=== PATIENT | female | born 1935 | race African-American/Black ===

== ENCOUNTER → 2017-02-11 | Outpatient (CLI) | payer BC ==
[2013-10-10 00:57] VITALS: BP 134/62
[~2017-02-11] MED LIST: AMLO10TA2 PO; ASPI-482 PO; CALC-274 PO; CARV6.252 PO; CLON0.5T3 PO; CLOT15CR5 TP; ESCITALOPRAM OX10 MG PO; HYDR28.3 TP; LATA2.5D3 OP; MELA1TAB13 PO; MIRT15TA3 PO; MULT1TAB13 PO; OLME40TA12 PO; OMEP40CA5 PO; ONDA4TAB7 PO; PRAV20TA PO; SUCR1TAB PO
--- NOTE | 2017-02-11 13:15 | RAD ---
DATE: 02/11/2017 EXAM: DIGITAL SCREEN BILAT W/CAD HISTORY: Screening mammogram. COMPARISON: Previous mammograms from 2015, 2014 and 2013 This study was interpreted with the benefit of Computerized Aided Detection (CAD). FINDINGS: Breast Density: SCATTERED The breast parenchyma shows scattered fibroglandular densities. Breast parenchyma level B. The skin and nipples are within normal limits. Stable small nodular densities are seen in the right breast dating back to 2013. No suspicious calcifications, spiculated masses or areas of architectural distortion. IMPRESSION: No mammographic evidence of malignancy. Stable mammogram. BI-RADS CATEGORY: 2 BENIGN FINDING(S) RECOMMENDED FOLLOW-UP: 12M 12 MONTH FOLLOW-UP PQRS compliance statement: Patient information was entered into a reminder system with a target due date 02/11/2018 for the next mammogram. Mammography is a sensitive method for finding small breast cancers, but it does not detect them all and is not a substitute for careful clinical examination. A negative mammogram does not negate a clinically suspicious finding and should not result in delay in biopsying a clinically suspicious abnormality. "Our facility is accredited by the [employer] Mammography [employer]."
== END | disposition home or self-care (01) ==
LOC: MAMMO 12:44
PROVIDERS: ATTEND Family Medicine
DX: Z12.31 Encounter for screening mammogram for malignant neoplasm of breast (principal)
CPT/HCPCS: G0202; 77067

== ENCOUNTER → 2017-04-06 | Outpatient (CLI) | payer BC ==
[2017-04-06] MEDS: ZOLPIDEM 5 MG TABLET. PO (22:30)
== END | disposition home or self-care (01) ==
LOC: SLPLAB 18:25
DX: G47.33 Obstructive sleep apnea (adult) (pediatric) (principal)
CPT/HCPCS: 95810

== ENCOUNTER 2017-04-08 10:12 | Emergency (ER) | payer BC ==
[2017-04-08] MEDS: IV NORMAL SALINE 1000ML BAG 1,000 ML IV (11:11)
[2017-04-08] MEDS: ONDANSETRON PF 4 MG/2 ML VIAL. IV (11:12)
[2017-04-08] MEDS: FAMOTIDINE 20 MG/2 ML VIAL IVP (11:12)
[2017-04-08 11:19] LABS: ADD MAN DIFF? NO
[2017-04-08 11:20] LABS: BASO % 0 % (0-3); EOS # 0.1 x10^3/uL (0.0-0.7); EOS % 1 % (0-3); HEMATOCRIT 42.4 % (36.0-47.0); HEMOGLOBIN 14.1 g/dL (12.0-15.5); LYMPH # 1.3 x10^3/uL (1.0-4.8); LYMPH % 26 % (24-48); MEAN CORPUSCULAR HEMOGLOBIN 30 pg (25-35); MEAN CORPUSCULAR HGB CONC 33 g/dL (31-37); MEAN CORPUSCULAR VOLUME 89 fL (79-100); MONO # 0.9 x10^3/uL (0.0-1.1); MONO % 18 % (0-9); NEUT # 2.8 x10^3uL (1.8-7.7); NEUT % 54 % (31-73); PLATELET COUNT 153 x10^3/uL (140-400); RED BLOOD COUNT 4.75 x10^6/uL (3.50-5.40); RED CELL DISTRIBUTION WIDTH 14.3 % (11.5-14.5); WHITE BLOOD COUNT 5.1 x10^3/uL (4.0-11.0)
[2017-04-08 11:32] LABS: INR 1.1 (0.8-1.1); PARTIAL THROMBOPLASTIN TIME 25 SEC (24-38); PROTHROMBIN TIME PATIENT 13.1 SEC (11.7-14.0)
[2017-04-08 11:33] LABS: ANION GAP 8 (6-14); BLOOD UREA NITROGEN 10 mg/dL (7-20); BUN/CREATININE RATIO 10 (6-20); CALCIUM 8.5 mg/dL (8.5-10.1); CARBON DIOXIDE 31 mmol/L (21-32); CHLORIDE 103 mmol/L (98-107); GFR 64.2; GLUCOSE 127 mg/dL (70-99); POTASSIUM 3.7 mmol/L (3.5-5.1); SODIUM 142 mmol/L (136-145)
[2017-04-08 11:35] LABS: INFLUENZA A PATIENT NEGATIVE (NEGATIVE); INFLUENZA B PATIENT NEGATIVE (NEGATIVE); OBC FLU VALID
[2017-04-08 11:39] LABS: ALBUMIN 3.5 g/dL (3.4-5.0); ALBUMIN/GLOBULIN RATIO 1.1 (1.0-1.7); ALK PHOS 89 U/L (46-116); ALT (SGPT) 47 U/L (14-59); AST (SGOT) 33 U/L (15-37); LIPASE 120 U/L (73-393); TOTAL BILIRUBIN 0.4 mg/dL (0.2-1.0); TOTAL PROTEIN 6.6 g/dL (6.4-8.2)
[2017-04-08 11:42] LABS: TROPONINI < 0.017 ng/mL (0.000-0.055)
[2017-04-08 12:01] LABS: BILIRUBIN,URINE NEGATIVE (NEG); CLARITY,URINE CLEAR; COLOR,URINE YELLOW; GLUCOSE,URINE NEGATIVE (NEG); NITRITE,URINE NEGATIVE (NEG); PROTEIN,URINE NEGATIVE (NEG-TRACE); UROBILINOGEN,URINE 0.2 mg/dL (0.2 mg/dL)
[2017-04-08 12:04] LABS: BACTERIA,URINE FEW /HPF (0-FEW); RBC,URINE 0 /HPF (0-2); SQUAMOUS EPITHELIAL CELL,UR FEW /LPF; WBC,URINE OCC /HPF (0-4)
== END 2017-04-08 13:26 | disposition home or self-care (01) ==
LOC: ER 13:26
DX: R11.2 Nausea with vomiting, unspecified (principal); R53.1 Weakness; R19.7 Diarrhea, unspecified; E11.9 Type 2 diabetes mellitus without complications; K21.9 Gastro-esophageal reflux disease without esophagitis; I10 Essential (primary) hypertension; Z95.0 Presence of cardiac pacemaker; Z90.49 Acquired absence of other specified parts of digestive tract
CPT/HCPCS: 36415; 71045; 80053; 81001; 83690; 84484; 85025; 85610; 85730; 87804; 87804-59; 93005; 96361; 96374; 96375; 99285-25; J2405; J7030; S0028

== ENCOUNTER → 2017-06-08 | Outpatient (CLI) | payer BC ==
[2017-06-08] MEDS: ZOLPIDEM 5 MG TABLET. PO (21:00)
== END | disposition home or self-care (01) ==
LOC: RT 18:34
DX: G47.33 Obstructive sleep apnea (adult) (pediatric) (principal)
CPT/HCPCS: 95811

== ENCOUNTER → 2018-02-14 | Outpatient (CLI) | payer BC ==
[2017-04-08 13:14] VITALS: BP 145/67
[~2018-02-14] MED LIST changes: -AMLO10TA2 PO; +AMLO10TA6 PO; +CARV6.2511 PO; -CARV6.252 PO; +CLON0.5T11 PO; -CLON0.5T3 PO; +DIPH1TAB PO; +ONDA4TAB10 SL
--- NOTE | 2018-02-14 09:46 | RAD ---
DATE: 02/14/2018 EXAM: MAMMO ANNIA SCREENING BILATERAL HISTORY: Routine screening COMPARISON: 03/13/2017 This study was interpreted with the benefit of Computerized Aided Detection (CAD). Breast Density: SCATTERED The breast parenchyma shows scattered fibroglandular densities. Breast parenchyma level B. FINDINGS: 2-D and 3-D tomosynthesis imaging was performed in CC and MLO projections. No new or enlarging breast densities are seen. Benign type calcifications are present. No suspicious microcalcifications have developed. IMPRESSION: Stable mammograms without evidence of malignancy. BI-RADS CATEGORY: 2 BENIGN FINDING(S) RECOMMENDED FOLLOW-UP: 12M 12 MONTH FOLLOW-UP PQRS compliance statement: Patient information was entered into a reminder system with a target due date for the next mammogram. Mammography is a sensitive method for finding small breast cancers, but it does not detect them all and is not a substitute for careful clinical examination. A negative mammogram does not negate a clinically suspicious finding and should not result in delay in biopsying a clinically suspicious abnormality. "Our facility is accredited by the [employer] Mammography [employer]."
== END | disposition home or self-care (01) ==
LOC: MAMMO 07:21
PROVIDERS: ATTEND Family Medicine
DX: Z12.31 Encounter for screening mammogram for malignant neoplasm of breast (principal)
CPT/HCPCS: 77063; 77067

== ENCOUNTER → 2019-02-15 | Outpatient (CLI) | payer BC ==
[2017-04-08 13:14] VITALS: BP 145/67
[~2019-02-15] MED LIST changes: -AMLO10TA6 PO; +AMLO10TA8 PO; +CLON-77 PO; -CLON0.5T11 PO; +OMEP40CA45 PO; -OMEP40CA5 PO
--- NOTE | 2019-02-15 14:07 | RAD ---
DATE: February 15, 2019 EXAM: MAMMO ANNIA SCREENING BILATERAL HISTORY: Screening study. COMPARISON: 2016 and 2018. This study was interpreted with the benefit of Computerized Aided Detection (CAD). 2-D digital mammographic views of both breasts were performed in the CC and MLO projections. 3-D digital tomosynthesis images of both breasts were performed in the CC and MLO projections and reviewed on a computer workstation. FINDINGS: Breast Density: SCATTERED The breast parenchyma shows scattered fibroglandular densities. Breast parenchyma level B.. There are no dominant suspicious masses, suspicious microcalcifications or evidence of architectural distortion. IMPRESSION: No mammographic indicators for malignancy. BI-RADS CATEGORY: 1 NEGATIVE RECOMMENDED FOLLOW-UP: 12M 12 MONTH FOLLOW-UP PQRS compliance statement: Patient information was entered into a reminder system with a target due date February 17, 2020 for the next mammogram. Mammography is a sensitive method for finding small breast cancers, but it does not detect them all and is not a substitute for careful clinical examination. A negative mammogram does not negate a clinically suspicious finding and should not result in delay in biopsying a clinically suspicious abnormality. "Our facility is accredited by the [employer] Mammography [employer]." The patient's breast density may affect the ability of mammography to detect breast cancer. There are 4 categories of breast density, A, B, C and D. Breast density A means that most of the breast tissue is replaced with adipose tissue and therefore is not dense. Breast density B means that the breast tissue is mildly dense and scattered. Breast density C means that the breast tissue is heterogeneously dense. Breast density D means that the breast tissue is very dense. Breast densities especially C and D may decrease the sensitivity of mammography to detect breast cancer. Therefore, the patient may benefit from 3-D breast mammography (3D breast tomography) as a part of their screening mammogram. Insurance may or may not pay for this additional imaging. The patient's breast density based on today's mammogram is category B.
== END | disposition home or self-care (01) ==
LOC: MAMMO 12:34
PROVIDERS: ATTEND Family Medicine
DX: Z12.31 Encounter for screening mammogram for malignant neoplasm of breast (principal)
CPT/HCPCS: 77063; 77067

== ENCOUNTER 2019-04-22 12:14 | Emergency (ER) | payer BC ==
[~2019-04-22] VITALS: Ht 162.6 cm; Wt 92.0 kg
[2019-04-22 13:17] LABS: INFLUENZA A PATIENT NEGATIVE (NEGATIVE); INFLUENZA B PATIENT NEGATIVE (NEGATIVE)
[2019-04-22 13:37] LABS: BASO # 0.1 x10^3/uL (0.0-0.2); BASO % 0 % (0-3); EOS % 0 % (0-3); HEMATOCRIT 42.1 % (36.0-47.0); HEMOGLOBIN 13.8 g/dL (12.0-15.5); LYMPH # 1.5 x10^3/uL (1.0-4.8); LYMPH % 11 % (24-48); MEAN CORPUSCULAR HEMOGLOBIN 30 pg (25-35); MEAN CORPUSCULAR HGB CONC 33 g/dL (31-37); MEAN CORPUSCULAR VOLUME 91 fL (79-100); MONO # 1.5 x10^3/uL (0.0-1.1); MONO % 11 % (0-9); NEUT # 10.8 x10^3/uL (1.8-7.7); NEUT % 78 % (31-73); PLATELET COUNT 133 x10^3/uL (140-400); RED CELL DISTRIBUTION WIDTH 14.1 % (11.5-14.5); WHITE BLOOD COUNT 13.8 x10^3/uL (4.0-11.0)
[2019-04-22 13:38] LABS: CALCIUM 8.9 mg/dL (8.5-10.1); GFR 63.9; POTASSIUM 4.7 mmol/L (3.5-5.1)
[2019-04-22 13:44] LABS: ALBUMIN 3.5 g/dL (3.4-5.0); TOTAL BILIRUBIN 0.5 mg/dL (0.2-1.0); TOTAL PROTEIN 6.9 g/dL (6.4-8.2)
[2019-04-22] MEDS ORDERED: IBUPROFEN 400 MG TABLET. PO ONE (13:45)
--- NOTE | 2019-04-22 13:51 | RAD ---
EXAM: CHEST AP ONLY INDICATION: Cough. TECHNIQUE: Single view COMPARISON: Chest x-ray of 04/08/2017 FINDINGS: A left chest dual-chamber pacemaker is present. The heart size is normal. The great vessels appear unremarkable. There is no hilar or mediastinal mass. The lungs show ill-defined opacity approximately 3 cm in the left hemithorax. This is not evident on the previous examination although a monitor lead was overlying the area on the previous exam.. There is no pleural effusion or pneumothorax. There are no significant osseous abnormalities. IMPRESSION: Ill-defined nodular opacity in the left midlung is newly apparent. Otherwise no acute findings in the chest status post previous left chest dual-chamber pacemaker placement. In the setting of cough, this could represent pneumonia. Recommend follow-up to resolution. Electronically signed by: Aramis French MD (04/22/2019 1:49 PM) [facility]
[2019-04-22] MEDS ORDERED: IV NORMAL SALINE 1000ML BAG 1,000 ML IV ONE (14:00)
[2019-04-22] MEDS ORDERED: cefTRIAXone IV Push 1 GM VIAL. IVP ONE (14:00)
[2019-04-22] MEDS ORDERED: AZITHROMYCIN 250 MG TABLET. PO ONE (14:00)
[2019-04-22] MEDS ORDERED: CEFD300C PO (14:16)
[2019-04-22] MEDS ORDERED: AZIT250T PO (14:16)
--- NOTE | 2019-04-22 14:18 | PHYS DOC ---
Past Medical History Past Medical History: Anxiety, Depression, Diabetes-Type II, GERD, Hypertension Additional Past Medical Histor: sleep apnea, CKD, neuropathy Past Surgical History: Cholecystectomy, Pacemaker Smoking Status: Former Smoker Alcohol Use: None Drug Use: None Adult General Chief Complaint Chief Complaint: Congestion HPI HPI Patient is a 83 year old female who presented to ER today for evaluation of fever , chill, productive cough with yellow sputum for a couple days. Patient also complaint of nasal congestion, headache, no neck pain. Patient denies any chest pain, no trouble breathing. No abdominal pain, no nausea or vomiting. No recent sick contact or hospitalization. All other ROS is negative unless otherwise noted in HPI Review of Systems Review of Systems See above Current Medications Current Medications Current Medications Medications (Trade) Dose Ordered Sig/Simi Start Time Stop Time Status Last Admin Dose Admin Azithromycin (Zithromax) 500 mg 1X ONCE 04/22/19 14:00 04/22/19 14:01 DC 04/22/19 14:02 500 MG Ceftriaxone Sodium (Rocephin) 1 gm 1X ONCE 04/22/19 14:00 04/22/19 14:01 DC 04/22/19 14:03 1 GM Ibuprofen (Motrin) 800 mg 1X ONCE 04/22/19 13:45 04/22/19 13:55 DC 04/22/19 14:03 800 MG Sodium Chloride 1,000 ml @ 1,000 mls/hr 1X ONCE 04/22/19 14:00 04/22/19 14:59 04/22/19 14:02 1,000 MLS/HR Allergies Allergies Allergies Coded Allergies Type Severity Reaction Last Updated Verified acetaminophen Allergy Intermediate 04/22/19 Yes ibuprofen Adverse Reaction Intermediate Nausea 04/22/19 Yes Physical Exam Physical Exam See above Constitutional: Well developed, well nourished, no acute distress, non-toxic appearance. [] HENT: Normocephalic, atraumatic, bilateral external ears normal, oropharynx moist with erythema, no oral exudates, nose with clear discharge Eyes: PERRLA, EOMI, conjunctiva normal, no discharge. [] Neck: Normal range of motion, no tenderness, supple, no stridor. [] Cardiovascular:Heart rate regular rhythm, no murmur [] Lungs & Thorax: Bilateral breath sounds clear to auscultation [] Abdomen: Bowel sounds normal, soft, no tenderness, no masses, no pulsatile masses. [] Skin: Warm, dry, no erythema, no rash. [] Back: No tenderness, no CVA tenderness. [] Extremities: No tenderness, no cyanosis, no clubbing, ROM intact, no edema. [] Neurologic: Alert and oriented X 3, normal motor function, normal sensory function, no focal deficits noted. [] Psychologic: Affect normal, judgement normal, mood normal. [] Current Patient Data Vital Signs Vital Signs Date Time Temp Pulse Resp B/P (MAP) Pulse Ox O2 Delivery O2 Flow Rate FiO2 04/22/19 13:23 60 16 155/68 (97) 98 Room Air 04/22/19 12:20 100.0 100.0 Lab Values Laboratory Tests Test 04/22/19 12:00 04/22/19 13:10 Influenza Type A Antigen Negative (NEGATIVE) Influenza Type B Antigen Negative (NEGATIVE) White Blood Count 13.8 x10^3/uL (4.0-11.0) H Red Blood Count 4.60 x10^6/uL (3.50-5.40) Hemoglobin 13.8 g/dL (12.0-15.5) Hematocrit 42.1 % (36.0-47.0) Mean Corpuscular Volume 91 fL (79-100) Mean Corpuscular Hemoglobin 30 pg (25-35) Mean Corpuscular Hemoglobin Concent 33 g/dL (31-37) Red Cell Distribution Width 14.1 % (11.5-14.5) Platelet Count 133 x10^3/uL (140-400) L Neutrophils (%) (Auto) 78 % (31-73) H Lymphocytes (%) (Auto) 11 % (24-48) L Monocytes (%) (Auto) 11 % (0-9) H Eosinophils (%) (Auto) 0 % (0-3) Basophils (%) (Auto) 0 % (0-3) Neutrophils # (Auto) 10.8 x10^3/uL (1.8-7.7) H Lymphocytes # (Auto) 1.5 x10^3/uL (1.0-4.8) Monocytes # (Auto) 1.5 x10^3/uL (0.0-1.1) H Eosinophils # (Auto) 0.0 x10^3/uL (0.0-0.7) Basophils # (Auto) 0.1 x10^3/uL (0.0-0.2) Sodium Level 136 mmol/L (136-145) Potassium Level 4.7 mmol/L (3.5-5.1) Chloride Level 98 mmol/L (98-107) Carbon Dioxide Level 30 mmol/L (21-32) Anion Gap 8 (6-14) Blood Urea Nitrogen 13 mg/dL (7-20) Creatinine 1.0 mg/dL (0.6-1.0) Estimated GFR (Cockcroft-Gault) 63.9 BUN/Creatinine Ratio 13 (6-20) Glucose Level 264 mg/dL (70-99) H Lactic Acid Level 2.0 mmol/L (0.4-2.0) Calcium Level 8.9 mg/dL (8.5-10.1) Total Bilirubin 0.5 mg/dL (0.2-1.0) Aspartate Amino Transferase (AST) 25 U/L (15-37) Alanine Aminotransferase (ALT) 25 U/L (14-59) Alkaline Phosphatase 108 U/L (46-116) Troponin I Quantitative < 0.017 ng/mL (0.000-0.055) Total Protein 6.9 g/dL (6.4-8.2) Albumin 3.5 g/dL (3.4-5.0) Albumin/Globulin Ratio 1.0 (1.0-1.7) Laboratory Tests 04/22/19 13:10 Laboratory Tests 04/22/19 13:10 EKG EKG EKG was done at 1242, rate of 60 beats per minutes, paced rhythm. Radiology/Procedures Radiology/Procedures [][facility] [address] [place] [address] IMAGING REPORT Signed PATIENT: ARMAND MANUEL ACCOUNT: [id number] : 1935 LOCATION: ER AGE: 83 SEX: F EXAM STATUS: REG ER ORD. PHYSICIAN: ALICIA KAISER DO REASON: cough, PROCEDURE: CHEST AP ONLY EXAM: CHEST AP ONLY INDICATION: Cough. TECHNIQUE: Single view COMPARISON: Chest x-ray of 04/08/2017 FINDINGS: A left chest dual-chamber pacemaker is present. The heart size is normal. The great vessels appear unremarkable. There is no hilar or mediastinal mass. The lungs show ill-defined opacity approximately 3 cm in the left hemithorax. This is not evident on the previous examination although a monitor lead was overlying the area on the previous exam.. There is no pleural effusion or pneumothorax. There are no significant osseous abnormalities. IMPRESSION: Ill-defined nodular opacity in the left midlung is newly apparent. Otherwise no acute findings in the chest status post previous left chest dual-chamber pacemaker placement. In the setting of cough, this could represent pneumonia. Recommend follow-up to resolution. Electronically signed by: Kt French MD (04/22/2019 1:49 PM) [facility] DICTATED and SIGNED BY: KT FRENCH MD DATE: 04/22/19 1344 Course & Med Decision Making Course & Med Decision Making Pertinent Labs and Imaging studies reviewed. (See chart for details) She is an 83-year-old female who was pneumonia in the ER, she was given IV Rocephin and Zithromax by mouth in the ER, patient did not want to stay hospital. Patient wants to go home and try outpatient treatment first. She says she will come back if she does not get better on Wednesday. Dragon Disclaimer Dragon Disclaimer This electronic medical record was generated, in whole or in part, using a voice recognition dictation system. Departure Departure Impression: Primary Impression: Community acquired pneumonia Disposition: HOME, SELF-CARE Condition: STABLE Referrals: CONCHIS BOYLE MD (PCP) PLEASE FOLLOW UP WITH YOUR DOCTOR ON WEDNESDAY FOR REEVALUATION. Patient Instructions: Pneumonia, Adult Additional Instructions: Thank you for visiting our Emergency Department. We appreciate you trusting us with your care. If any additional problems come up don't hesitate to return to visit us. Please follow up with your primary care provider so they can plan additional care if needed and know about the problem that you had. If symptoms worsen come back to the Emergency Department. Any concerning symptoms that start such as chest pain, shortness of air, weakness or numbness on one side of the body, running high fevers or any other concerning symptoms return to the ER. Scripts Azithromycin (ZITHROMAX) 250 Mg Tablet 250 MG PO DAILY for ANTI-BIOTIC for 4 Days, #4 TAB 0 Refills Prov: ALICIA KAISER DO 04/22/19 Cefdinir (CEFDINIR) 300 Mg Capsule 1 CAP PO BID, #20 CAP Prov: ALICIA KAISER DO 04/22/19 ALICIA KAISER DO Apr 22, 2019 14:18
[2019-04-22 14:30] VITALS: BP 174/57
[2019-04-22 15:16] LABS: PROTHROMBIN TIME PATIENT 13.5 SEC (11.7-14.0)
--- NOTE | 2019-04-24 06:16 | EKG ---
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
== END 2019-04-22 14:45 | disposition home or self-care (01) ==
LOC: ER 12:14
DX: J18.9 Pneumonia, unspecified organism (principal); K21.9 Gastro-esophageal reflux disease without esophagitis; F41.9 Anxiety disorder, unspecified; E11.40 Type 2 diabetes mellitus with diabetic neuropathy, unspecified; I12.9 Hypertensive chronic kidney disease with stage 1 through stage 4 chronic kidney disease, or unspecified chronic kidney disease; E11.22 Type 2 diabetes mellitus with diabetic chronic kidney disease; N18.9 Chronic kidney disease, unspecified; Z87.891 Personal history of nicotine dependence; Z90.49 Acquired absence of other specified parts of digestive tract; Z95.0 Presence of cardiac pacemaker; Z88.6 Allergy status to analgesic agent; Z88.8 Allergy status to other drugs, medicaments and biological substances
CPT/HCPCS: 36415; 71045; 80053; 83605; 84484; 85025; 85610; 85730; 87040; 87804; 93005; 96374; 99285; J0696; J7030; Q0144

== ENCOUNTER 2019-04-30 13:00 | Emergency (ER) | payer BC ==
[~2019-04-30] VITALS: Ht 165.1 cm; Wt 202.0 kg
[~2019-04-30 13:00] MED LIST changes: +AZIT250T PO; +CEFD300C PO
[2019-04-30] MEDS ORDERED: FAMOTIDINE 20 MG/2 ML VIAL IVP ONE (13:30)
[2019-04-30] MEDS ORDERED: diphenhydrAMINE 50 MG/ML VIAL IVP ONE (13:30)
[2019-04-30] MEDS ORDERED: methylPREDNISolone SOD SUCC PF 125 MG/2 ML VIAL. IV ONE (13:30)
--- NOTE | 2019-04-30 15:13 | PHYS DOC ---
Past Medical History Past Medical History: Anxiety, Depression, Diabetes-Type II, GERD, Hypert ension, Pneumonia Additional Past Medical Histor: sleep apnea, CKD, neuropathy Past Surgical History: Cholecystectomy, Pacemaker Smoking Status: Never Smoker Alcohol Use: None Drug Use: None Adult General Chief Complaint Chief Complaint: ALLERGIC REACTION HPI HPI Patient is a 83 year old female who presented to ER today for evaluation of swelling on her lip area when she woke up this morning, she also complaint of itchy on her trunk and denies any trouble breathing, no trouble swallowing. Patient was recently evaluated here due to pneumonia, she was given IV Rocephin and by mouth Zithromax in the ER. Patient was discharged home with prescription for Zithromax and Omnicef. Patient has been taking these medications already and was done with the Zithromax. Patient has several day left for her Omnicef. Patient was seen by her family doctor on Wednesday for follow up. Her doctor put her on Tessalon Perles. Denied taking any other new medication. Review of Systems Review of Systems All other ROS is negative unless otherwise noted in HPI Current Medications Current Medications Current Medications Medications (Trade) Dose Ordered Sig/Simi Start Time Stop Time Status Last Admin Dose Admin Diphenhydramine HCl (Benadryl) 50 mg 1X ONCE 04/30/19 13:30 04/30/19 13:31 DC 04/30/19 13:48 50 MG Famotidine (Pepcid Vial) 20 mg 1X ONCE 04/30/19 13:30 04/30/19 13:31 DC 04/30/19 13:48 20 MG Methylprednisolone Sodium Succinate (SOLU-Medrol 125MG VIAL) 125 mg 1X ONCE 04/30/19 13:30 04/30/19 13:31 DC 04/30/19 13:48 125 MG Allergies Allergies Allergies Coded Allergies Type Severity Reaction Last Updated Verified acetaminophen Allergy Intermediate 04/22/19 Yes azithromycin Allergy Intermediate 04/30/19 Yes benzonatate Allergy Intermediate 04/30/19 Yes cefdinir Allergy Intermediate 04/30/19 Yes ibuprofen Adverse Reaction Intermediate Nausea 04/22/19 Yes Physical Exam Physical Exam See above Constitutional: Well developed, well nourished, no acute distress, non-toxic appearance. [] HENT: Normocephalic, atraumatic, bilateral external ears normal, oropharynx moist, no oral exudates, nose normal. There is upper and lower right side lip swelling. NO tongue swelling, no throat swelling. Eyes: PERRLA, EOMI, conjunctiva normal, no discharge. [] Neck: Normal range of motion, no tenderness, supple, no stridor. [] Cardiovascular:Heart rate regular rhythm, no murmur [] Lungs & Thorax: Bilateral breath sounds clear to auscultation [] Abdomen: Bowel sounds normal, soft, no tenderness, no masses, no pulsatile masses. [] Skin: Warm, dry, there is fine rash on right lower flank area. Back: No tenderness, no CVA tenderness. [] Extremities: No tenderness, no cyanosis, no clubbing, ROM intact, no edema. [] Neurologic: Alert and oriented X 3, normal motor function, normal sensory function, no focal deficits noted. [] Psychologic: Affect normal, judgement normal, mood normal. [] Current Patient Data Vital Signs Vital Signs Date Time Temp Pulse Resp B/P (MAP) Pulse Ox O2 Delivery O2 Flow Rate FiO2 04/30/19 15:24 64 16 152/67 (95) 97 Room Air 04/30/19 14:25 2.0 04/30/19 13:33 98.3 98.3 EKG EKG [] Radiology/Procedures Radiology/Procedures [] Course & Med Decision Making Course & Med Decision Making Pertinent Labs and Imaging studies reviewed. (See chart for details) Patient was given medication in the ER. Patient felt much better. Patient is on Tessalon Perle, Omnicef, Zithromax. Patient had finished taking the Zithromax already. Not sure what medications she is allergic to. Patient was advised to stop taking the omnicef and tessalon perle. Patient was recommended to follow up with an allergy doctor for further evaluation and treatment. Patient is amenable to plan of care. Dragon Disclaimer Dragon Disclaimer This electronic medical record was generated, in whole or in part, using a voice recognition dictation system. Departure Departure Impression: Primary Impression: Allergic reaction Disposition: HOME, SELF-CARE Condition: IMPROVED Referrals: CONCHIS BOYLE MD (PCP) follow up with your doctor this week for a referral to An allergy doctor for further evaluation and treatment. DO NOT TAKE THE COUGH MEDICATION AND CEFDINIR ANYMORE. Patient Instructions: Allergies, Generic, Angioedema, [id number] Additional Instructions: Thank you for visiting our Emergency Department. We appreciate you trusting us with your care. If any additional problems come up don't hesitate to return to visit us. Please follow up with your primary care provider so they can plan additional care if needed and know about the problem that you had. If symptoms worsen come back to the Emergency Department. Any concerning symptoms that start such as chest pain, shortness of air, weakness or numbness on one side of the body, running high fevers or any other concerning symptoms return to the ER. Scripts Diphenhydramine Hcl (BENADRYL) 25 Mg Capsule 25 MG PO Q6HRS PRN for ITCHING, #30 CAP Prov: ALICIA KAISER DO 04/30/19 Famotidine (PEPCID) 20 Mg Tablet 20 MG PO HS for 5 Days, #5 TAB Prov: ALICIA KAISER DO 04/30/19 Prednisone (PREDNISONE) 20 Mg Tablet 1 TAB PO DAILY, #5 TAB Prov: ALICIA KAISER DO 04/30/19 ALICIA KAISER DO Apr 30, 2019 15:13
[2019-04-30 15:24] VITALS: BP 152/67
[2019-04-30] MEDS ORDERED: FAMO-63 PO (15:27)
[2019-04-30] MEDS ORDERED: DIPH25CA58 PO (15:27)
[2019-04-30] MEDS ORDERED: PRED20TA PO (15:27)
== END 2019-04-30 15:35 | disposition home or self-care (01) ==
LOC: ER 13:00
DX: T78.49XA Other allergy, initial encounter (principal); R60.1 Generalized edema; L29.9 Pruritus, unspecified; F41.9 Anxiety disorder, unspecified; F32.9 Major depressive disorder, single episode, unspecified; K21.9 Gastro-esophageal reflux disease without esophagitis; E11.40 Type 2 diabetes mellitus with diabetic neuropathy, unspecified; I12.9 Hypertensive chronic kidney disease with stage 1 through stage 4 chronic kidney disease, or unspecified chronic kidney disease; E11.22 Type 2 diabetes mellitus with diabetic chronic kidney disease; N18.9 Chronic kidney disease, unspecified; Z90.49 Acquired absence of other specified parts of digestive tract; Z95.0 Presence of cardiac pacemaker; Z88.2 Allergy status to sulfonamides; Z88.6 Allergy status to analgesic agent; Z88.1 Allergy status to other antibiotic agents; Z88.8 Allergy status to other drugs, medicaments and biological substances; X58.XXXA Exposure to other specified factors, initial encounter
CPT/HCPCS: 96374; 96375; 99285; J1200; J2930; J3490

== ENCOUNTER → 2020-02-19 | Outpatient (CLI) | payer BC ==
[~2020-02-19] MED LIST changes: +AMLO-187 PO; -AMLO10TA8 PO; +DIPH25CA58 PO; +FAMO-63 PO; +PRED20TA PO
--- NOTE | 2020-02-19 16:54 | RAD ---
BILATERAL SCREENING MAMMOGRAM, 3-D History: Routine screening. Comparison: 02/15/2019, 02/14/2018, 01/15/2017 Technique: MLO and CC digital tomosynthesis (3D) images obtained. Radiologist reviewed these images on dedicated workstation. Findings: Breast Tissue Density B : There are scattered areas of fibroglandular density. There are no dominant masses, suspicious microcalcifications, or architectural distortion. IMPRESSION: No mammographic evidence of malignancy. Recommend routine screening. BI-RADS category 1: Negative. The images were reviewed with computer-aided detection. Patient information is entered into reminder system with a target due date for the next screening mammogram. Mammography is the most sensitive method for finding small breast cancers, but it does not detect them all and is not a substitute for careful clinical examination. A negative mammogram does not negate a clinically suspicious finding and should not result in delay in biopsying a clinically suspicious abnormality. "Our facility is accredited by the [employer] Mammography [employer]." Electronically signed by: Yobani Dobbins MD (02/19/2020 4:50 PM) [facility]
== END ==
LOC: MAMMO 12:28
PROVIDERS: ATTEND Family Medicine
DX: Z12.31 Encounter for screening mammogram for malignant neoplasm of breast (principal)
CPT/HCPCS: 77063; 77067

== ENCOUNTER → 2021-02-24 | Outpatient (CLI) | payer BC ==
[~2021-02-24] MED LIST changes: +MIRT-7 PO; -MIRT15TA3 PO; -OMEP40CA45 PO; +OMEP40CA7 PO
--- NOTE | 2021-02-24 17:30 | RAD ---
Bilateral digital screening 2-D and 3-D (digital breast tomosynthesis) mammogram: Reason for examination: Routine screening. Comparison: Mammogram from the 02/19/2020 and 02/15/2019. Interpretation was made with the benefit of CAD. FINDINGS: Breast density: Category B. There are scattered areas of fibroglandular density. No suspicious breast mass, malignant appearing calcifications, or architectural distortion is seen. IMPRESSION: No evidence of malignancy. Assessment: BI-RADS 1. Negative. Recommendation: Routine screening mammograms. The patient will receive a letter with the results in the mail. Patient information will be entered i nto the mammography reminder system with a target recall date for the next mammogram. A reminder venancio er will be generated. Electronically signed by: Ann Ritter MD (02/24/2021 5:28 PM) [id number]
== END ==
LOC: MAMMO 09:50
PROVIDERS: ATTEND Family Medicine
DX: Z12.31 Encounter for screening mammogram for malignant neoplasm of breast (principal)
CPT/HCPCS: 77063; 77067